=== PATIENT | male | born 1955 | race Caucasian/White ===

== ENCOUNTER 2019-04-10 04:52 | Inpatient (IN) ==
[2019-04-04 13:46] LABS: Basophils # (Auto) 0.1 K/mcL (0.0-0.3); Basophils % (Auto) 0.9 % (0.0-2.0); Eosinophils # (Auto) 0.8 K/mcL (0.0-0.7); Eosinophils % (Auto) 9.6 % (0.0-7.0); Granulocytes % (Auto) 58.3 % (38.0-78.0); Hematocrit 52.1 % (41.0-55.0); Hemoglobin 17.3 g/dL (13.5-16.5); Lymphocytes # (Auto) 2.1 K/mcL (1.5-4.8); Lymphocytes % (Auto) 24.5 % (15.5-49.0); Mean Cell Volume 94.9 fL (80.0-100.0); Mean Corpuscular HGB Conc 33.3 g/dL (31.0-36.0); Mean Platelet Volume 7.4 fL (7.4-10.4); Monocytes # (Auto) 0.6 K/mcL (0.1-0.9); Monocytes % (Auto) 6.7 % (1.0-12.0); Platelet Count 283 K/mcL (140-440); RBC 5.49 M/mcL (4.50-5.90); Red Cell Distribution Width 13.4 % (11.5-14.5); WBC 8.5 K/mcL (4.5-11.0)
[2019-04-04 13:50] LABS: Blood Urea Nitrogen 9 mg/dl (8-23); Calcium 9.5 mg/dl (8.6-10.4); Carbon Dioxide 27 mmol/L (22-30); Chloride 102 mmol/L (96-108); Glomerular Filtration Rate 79; Glucose 113 mg/dL (70-105)
[2019-04-04 14:12] LABS: Estimated Average Glucose(eAG) 114 mg/dL; Hemoglobin A1C 5.6 % HGB (4.0-6.0)
[2019-04-04 14:26] LABS: Appearance,Urine CLEAR; Bacteria,Urine MANY /hpf (0); Bilirubin,Urine NEG (NEG); Color,Urine YELLOW; Culture Indicated,Urine YES; Glucose,Urine (UA) NEGATIVE (NEG); Ketones,Urine NEG (NEG); Leukocyte Esterase,Urine 500 /uL (NEG); Mucus,Urine MANY /hpf (0); Nitrate,Urine NEG (NEG); Protein,Urine NEG (NEG); Specific Gravity,Urine 1.024 (1.000-1.035); Urine Blood NEG mg/dL (<0.03); Urine RBC 1 /hpf (0-1); Urine Squamous Epithelial Cell < 1 /hpf (0-4); Urine WBC 71 /hpf (0-4)
[2019-04-10] MEDS ORDERED: SCOPOLAMINE 1 PATCH PATCH TOPICAL PRN (05:00)
[2019-04-10] MEDS ORDERED: IPRATROPIUM/ALBUTEROL 3 ML AMPUL.NEB NEB PRN ×2 (05:00→08:30)
[2019-04-10] MEDS ORDERED: PREGABALIN 75 MG CAPSULE PO SCH (06:00)
[2019-04-10] MEDS ORDERED: 0.9 % SODIUM CHLORIDE 9 ML, KETOROLAC 30 MG, ROPIVACAINE HCL/PF 49.5 ML, EPINEPHrine 0.... IJ SCH (06:00)
[2019-04-10] MEDS ORDERED: ceFAZolin 2 GM in DEXTROSE 5% IN WATER 50 ML IV SCH (06:00)
[2019-04-10] MEDS ORDERED: CELECOXIB 200 MG CAPSULE PO SCH (06:00)
[2019-04-10] MEDS ORDERED: oxyCODONE 10 MG TAB.ER.12H PO SCH (06:00)
[2019-04-10 06:17] LABS: Appearance,Urine CLEAR; Bacteria,Urine MOD /hpf (0); Bilirubin,Urine NEG (NEG); Color,Urine AMBER; Culture Indicated,Urine YES; Glucose,Urine (UA) NEGATIVE (NEG); Ketones,Urine NEG (NEG); Leukocyte Esterase,Urine 75 /uL (NEG); Mucus,Urine MANY /hpf (0); Nitrate,Urine NEG (NEG); Protein,Urine 30 mg/dL (NEG); Specific Gravity,Urine 1.027 (1.000-1.035); Urine Blood NEG mg/dL (<0.03); Urine Hyaline Cast 14 /lpf (0-2); Urine RBC 3 /hpf (0-1); Urine Squamous Epithelial Cell 1 /hpf (0-4); Urine WBC 65 /hpf (0-4)
[2019-04-10] MEDS ORDERED: LIDOCAINE HCL/PF 100 MG/5 ML SYRINGE IV ONE (07:40)
[2019-04-10] MEDS ORDERED: ROPIVACAINE HCL/PF 20 ML VIAL IJ ONE (07:40)
[2019-04-10] MEDS ORDERED: TRANEXAMIC ACID 1,000 MG/10 ML VIAL IV ONE ×2 (07:40→09:30)
[2019-04-10] MEDS ORDERED: ONDANSETRON 4 MG/2 ML VIAL IV ONE (07:40)
[2019-04-10] MEDS ORDERED: DEXAMETHASONE 10 MG/ML VIAL IV ONE (07:40)
[2019-04-10] MEDS ORDERED: MIDAZOLAM 5 MG/5 ML VIAL IV ONE (07:40)
[2019-04-10] MEDS ORDERED: PROPOFOL 200 MG/20 ML VIAL IV ONE (07:40)
[2019-04-10] MEDS ORDERED: fentaNYL 100 MCG/2 ML VIAL IV ONE (07:40)
[2019-04-10] MEDS ORDERED: GENTAMICIN SULFATE 800 MG/20 ML VIAL IR ONE (08:20)
[2019-04-10] MEDS ORDERED: MEPERIDINE 25 MG/ML SYRINGE IV PRN (08:30)
[2019-04-10] MEDS ORDERED: ATROPINE SULFATE 0.4 MG/ML VIAL IV PRN (08:30)
[2019-04-10] MEDS ORDERED: PROMETHAZINE 25 MG/ML VIAL IV PRN (08:30)
[2019-04-10] MEDS ORDERED: METOPROLOL TARTRATE 5 MG/5 ML VIAL IV PRN (08:30)
[2019-04-10] MEDS ORDERED: NALOXONE HCL 0.4 MG/ML VIAL IV PRN (08:30)
[2019-04-10] MEDS ORDERED: FLUMAZENIL 0.1 MG/ML ML IV PRN (08:30)
[2019-04-10] MEDS ORDERED: ACETAMINOPHEN 1,000 MG/100 ML BOTTLE IV ONE (08:30)
[2019-04-10] MEDS ORDERED: diphenhydrAMINE 50 MG/ML VIAL IV PRN (08:30)
[2019-04-10] MEDS ORDERED: ONDANSETRON 4 MG/2 ML VIAL IV PRN ×2 (08:30→09:30)
[2019-04-10] MEDS ORDERED: HYDROmorphone 2 MG/ML VIAL IV PRN ×2 (08:30→09:30)
[2019-04-10] MEDS ORDERED: METHOCARBAMOL 1,000 MG/10 ML VIAL IV PRN (08:30)
[2019-04-10] MEDS ORDERED: fentaNYL 100 MCG/2 ML VIAL IV PRN (08:30)
[2019-04-10] MEDS ORDERED: ePHEDrine 50 MG/ML AMPUL IV PRN (08:30)
[2019-04-10] MEDS ORDERED: POLYETHYLENE GLYCOL 3350 17 GM PACKET PO PRN (09:30)
[2019-04-10] MEDS ORDERED: MAGNESIUM HYDROXIDE 30 ML ORAL.SUSP PO PRN (09:30)
[2019-04-10] MEDS ORDERED: BISACODYL 10 MG SUPP.RECT PR PRN (09:30)
[2019-04-10] MEDS ORDERED: FLEETS ADULT ENEMA PR PRN (09:30)
[2019-04-10] MEDS ORDERED: BENZOCAINE/MENTHOL 1 LOZENGE PO PRN (09:30)
--- NOTE | 2019-04-10 09:30 | Brief Operative Note ---
Date of procedure: 04/10/19 Pre-op diagnosis: Right knee severe DJD Post-op diagnosis: same Procedure: Right robotic assisted total knee arthroplasty Grafts/Implants: Yes ([place] Triathlon CR 7 femur, 7 tibia, 9mm CS insert, 33 patella) Anesthesia: spinal, GLMA Findings: severe arthritis Complications: none Surgeon: Toby Morrison Filler Shredding Machine Loader: Luis Enrique Delacruz Estimated blood loss (cc): 30 Specimens Removed/Pathology: none sent Condition: stable Disposition: PACU
[2019-04-10] MEDS ORDERED: ALBUTEROL SULFATE 1 PUFF INHALER INH PRN (09:34)
--- NOTE | 2019-04-10 10:25 | XRay Report ---
CLINICAL INFORMATION: Post-op total knee. COMPARISON: None. FINDINGS: Total knee prostheses is anatomically aligned. No osseous abnormality. Periarticular gas and soft tissue swelling seen as expected. IMPRESSION: Negative Interpreted and Authenticated by: Suhail Shukla 04/10/19
--- NOTE | 2019-04-10 10:45 | Operative Note ---
DATE OF OPERATION: 04/10/2019 PREOPERATIVE DIAGNOSIS: Right knee severe osteoarthritis. POSTOPERATIVE DIAGNOSIS: Right knee severe osteoarthritis. PROCEDURE PERFORMED: Right robotic-assisted total knee arthroplasty placing a [place] Triathlon size 7 cruciate retaining femoral component, size 7 tibial baseplate, a 9 mm X3 CS insert with a 33 mm patellar button. SURGEON: Toby Morrison M.D. DIAMOND MOUNTER: Marvel Delacruz PA-C. The PA's assistance was required for the safe and efficient completion of the entire case. This provider's expertise and technical skill were required throughout the case. The PA assisted with preoperative coordination, intraoperative retraction, wound closure, dressing and splint application, as well as postoperative documentation and care coordination. ANESTHESIA: Spinal plus general. DRAINS: None. SPECIMENS: Bone cuts which were discarded. BLOOD LOSS: 50 mL. COMPLICATIONS: None. POSTOPERATIVE CONDITION: Stable. INDICATIONS FOR SURGERY: This is a 64-year-old male with longstanding, severe right knee pain. Radiographs showed severe [id number] arthritis. FINDINGS AT SURGERY: Severe arthritis. Post implantation showed good joint alignment and stability. PROCEDURE IN DETAIL: The patient had been seen preoperatively. Informed consent had been obtained after discussion of risks and benefits of surgery. Risks including, but not limited to, bleeding; infection, possibly requiring implant removal and prolonged IV antibiotics; injury to nerves, blood vessels, and other surrounding structures; anesthetic risks; incomplete or no resolution of symptoms; stiffness; swelling; pain; DVT and pulmonary embolus risks; and the possibility of needing further revision surgery. He understood these risks and wished to proceed. Correct operative site was marked and then patient received spinal anesthesia. He was taken to the operating room and LMA general given. Right lower extremity was carefully prepped and draped in normal sterile fashion. A time-out was performed verifying patient name, operative site, and plan. Esmarch was used to exsanguinate the extremity and tourniquet was inflated to 300 mmHg. Ioban was used to cover all skin surfaces, then a midline incision was made with a scalpel through skin and subcutaneous tissue. Irrisept was irrigated. Medial parapatellar arthrotomy made. Irrisept was irrigated again. We excised the retropatellar fat pad as well as anterior horns of menisci. Subperiosteal release was done of the anterior medial tibia, as well as release of some of the deep fibers with a Barber elevator. We then placed femoral and tibial checkpoints and then two stab incisions were made over the femur and two over the tibia and bicortical pins placed, and the arrays were connected. We then did our hip center of rotation check. Green probe was used to identify medial and lateral malleoli and double-check out checkpoints. Blue probe was then used to do our mapping. Rongeur was then used to remove osteophytes. We then checked our flexion-extension gaps and adjusted implants to get 17 mm gaps medially in flexion and extension and laterally in flexion. It took 3 degrees of varus on the tibia and 2 on the femur. We still had about 20 mm gap laterally. We checked our patellar tracking which was good and then we went ahead and made our bone cuts using the robotic assistance. Once this was completed, the tibia was prepped using a 7 baseplate, externally rotated as bone coverage would allow. We used a boss reamer and keel punch to prepare and then a keeled tibial trial was placed. Femur was elevated and a curved osteotome used to remove posterior osteophytes off the medial femoral condyle. There was minimal on the lateral. We then placed the femoral component. This was pinned into place and peg holes drilled. A 9 insert was placed with some challenge. We did check our extension and we were a couple degrees short of full. We then prepared the patella. Freehand technique was used and then pre-resection was 24 mm. Post-resection with the implant was 22 mm. We medialized maximally as bone coverage would allow and then a lateral facetectomy was performed. Patellar tracking was checked and was good, so we went ahead and removed trial implants. Definitive implants were opened. Irrisept was irrigated while antibiotic cement was mixed. After a minute we pulse lavaged with saline and then CO2 gun was used to clean and dry the cancellous bone surfaces. We then cemented the tibia. Excess cement removed. We cemented the femur and excess cement removed. A 9 insert trial was placed and the knee was taken into extension. Patellar button was cemented. We removed our checkpoints and filled the joint with Irrisept. We went ahead and removed our pins and our arrays and injected pain cocktail while cement hardened. This was injected in the pericapsular and subcutaneous tissues. Once cement was fully hardened, we flexed the knee up and did a final inspection and removal of any excess cement. We then chose a CS insert due to his subluxation preoperatively. We went ahead and injected the posterior medial capsule. We irrigated Irrisept on the tray and then the 9 CS insert was impacted. We then filled the joint with Irrisept, after a minute pulse lavaged with saline. The knee was then taken to about 45 degrees of flexion. Interrupted [id number] #2 FiberWires were used around the superior quadrant of the patella, interrupted #1 Vicryl around the inferior quadrant, running #1 Vicryl was used for patellar tendon and quad tendon. Irrisept was irrigated again, after a minute pulse lavaged with saline, and then 2-0 Monocryl used for subcutaneous and ct for skin. Xeroform and sterile dressing were applied. Tourniquet was released. The patient was awakened, extubated, and transferred to recovery in stable condition. BJB:[email or web address] Job ID: [id number] Doc ID: [id number] Toby Morrison MD
[2019-04-10] MEDS: KETOROLAC 15 MG/ML VIAL IV SCH ×3 (13:06→23:20)
[2019-04-10] MEDS: 0.9 % SODIUM CHLORIDE 10 ML SYRINGE IV SCH ×2 (13:09→20:40)
[2019-04-10] MEDS: 0.9 % SODIUM CHLORIDE 1,000 ML IV SCH ×2 (13:36→20:40)
[2019-04-10] MEDS: ceFAZolin 1 GM VIAL IV SCH ×2 (14:35→23:00)
[2019-04-10] MEDS: HYDROcodone/APAP 10/325MG TABLET PO PRN ×2 (17:55→21:44)
[2019-04-10] MEDS: ASPIRIN 81 MG TAB.CHEW PO SCH (20:39)
[2019-04-10] MEDS: DOCUSATE SODIUM 100 MG CAPSULE PO SCH (20:40)
[2019-04-10] MEDS ORDERED: SENNOSIDES 1 TABLET PO SCH (21:00)
[2019-04-11] MEDS: HYDROcodone/APAP 10/325MG TABLET PO PRN ×3 (02:33→12:13)
[2019-04-11] MEDS: 0.9 % SODIUM CHLORIDE 1,000 ML IV SCH (04:35)
[2019-04-11] MEDS: KETOROLAC 15 MG/ML VIAL IV SCH ×2 (05:37→12:13)
[2019-04-11] MEDS: 0.9 % SODIUM CHLORIDE 10 ML SYRINGE IV SCH (05:43)
--- NOTE | 2019-04-11 06:49 | Discharge Summary ---
Providers - Providers Patient information: Note initiated : 04/11/19 at 6:45 am Service Date, if different from initiated Date: [] Patient: Julio Gandhi 64 y/o M admitted on 04/10/19 for Right Total Knee Arthroplasty Edil. Chief Complaint: [] Discharge date: 04/11/19 Hospitalization Hospital Course: Pt was admitted for a R TKA. Pt underwent the procedure on the day of admission. Discharged post-op day 1. ASA for DVT prophylaxis. F/u in 2 weeks. Discharge diagnosis: R knee OA Exam - Exam Clean and dry: Yes Weight bearing status: as tolerated Ortho Discharge - TKA - Patient Instructions Diet: Regular Diet Activity: activity as tolerated, weight bearing as tolerated Total Knee Protocol: For Total Knee: Start ROM SOURAV with stationary bike or rocking chair. Work on gaining full extension of knee. Posterior dislocation precautions provided. Hip abductor strengthening and gait training instructions provided. Apply Cryocuff as instructed. Dressing Care: May shower in 2 days - Follow Up Plan Follow Up Appointments: Luis Enrique Delacruz PA-C [Physician Cryogenic Transport Driver] - 04/25/19 1:40 pm Disposition: Home, Self-Care Prognosis: Good Rehab Potential: Good Overall status at discharge: patient is progressing back to baseline - Orders For Discharge Prescriptions: Aspirin 81 tab PO BID #30 tab.chew Transmission Status: Pending to [facility] HYDROcodone/APAP 10/325MG [Mentone 10-325Mg] 1 - 2 tab PO Q4HP PRN #90 tab PRN Reason: Pain Level 3-6 Prescription Printed Pending Studies Resuscitation Status Full Code Diet Regular Diet Start MonApr 10 932 Hydrocodone Bitart/Acetaminophen (Mentone 10/325mg) 0 tab PO Q4HP PRN PRN Reason: PAIN LEVEL 3-6 Last Admin: 04/11/19 02:33 Dose: 2 tab Documented by: Admin: 04/10/19 21:44 Dose: 2 tab Documented by: AN Aspirin (Aspirin) 81 mg PO BID [facility] Last Admin: 04/10/19 20:39 Dose: 81 mg Documented by: AN Docusate Sodium (Colace) 100 mg PO BID [facility] Last Admin: 04/10/19 20:40 Dose: 100 mg Documented by: AN Sodium Chloride (Sodium Chloride 0.9%) 1,000 mls @ 100 mls/hr IV .Q10H [facility] Last Admin: 04/11/19 04:35 Dose: Not Given Documented by: Infusion: 04/10/19 23:17 Dose: 0 mls/hr Documented by: Admin: 04/10/19 20:40 Dose: Not Given Documented by: Admin: 04/10/19 13:36 Dose: 100 mls/hr Documented by: [email or web address] Ketorolac Tromethamine (Toradol) 15 mg IV Q6 [facility] Stop: 04/12/19 06:01 Last Admin: 04/11/19 05:37 Dose: 15 mg Documented by: Admin: 04/10/19 23:20 Dose: 15 mg Documented by: Admin: 04/10/19 17:56 Dose: 15 mg Documented by: [email or web address] Admin: 04/10/19 13:06 Dose: 15 mg Documented by: [email or web address] Senna (Senokot) 2 tab PO HS [facility] Last Admin: 04/10/19 20:39 Dose: 2 tab Documented by: AN Sodium Chloride (Saline Flush) 10 ml IV Q8 [facility] Last Admin: 04/11/19 05:43 Dose: 10 ml Documented by: Admin: 04/10/19 20:40 Dose: Not Given Documented by: Admin: 04/10/19 13:09 Dose: Not Given Documented by: [email or web address] Shift Summary 04/11/19 04:26 Shift Summary by Janelle Correia A&O. Up with 1 assist and FWW, GB. Needs reinforced on taking it slow when ambulating and transferring, he goes too fast, can lose balance. Dressing to right knee, CDI. Cryocuff and av boots worn. Voiding well in BR. Pain managed with 2 tabs Mentone 10mg just about every 4 hours and scheduled Toradol. 18G IV to LFA, SL. VSS on RA. Wants to d/c home today. Initialized on 04/11/19 04:26 - END OF NOTE
[2019-04-11] MEDS: DOCUSATE SODIUM 100 MG CAPSULE PO SCH (07:24)
[2019-04-11] MEDS: ASPIRIN 81 MG TAB.CHEW PO SCH (07:24)
[2019-04-11] MEDS ORDERED: Fluticasone Furoate [Arnuity Ellipta] Inhaler INH SCH (09:00)
[2019-04-11] MEDS ORDERED: CETIRIZINE 10 MG TABLET PO SCH (09:00)
[2019-04-11] MEDS ORDERED: PNEUMOCOCCAL 23-VAL P-SAC VAC 0.5 ML SYRINGE IM ONE (10:00)
== END 2019-04-11 13:10 | disposition home or self-care (01) | DRG 470 ==
LOC: MEDSUR 04:52
PROVIDERS: ADMIT Orthopaedic Surgery; ATTEND Orthopaedic Surgery